=== PATIENT | female | born 1940 | race Caucasian/White ===

== ENCOUNTER 2017-03-01 10:25 | Inpatient (IN) ==
[2017-03-01] MEDS ORDERED: NS 1,000 ML IV SCH (10:48)
[2017-03-01 11:18] LABS: MANUAL DIFF NEEDED? NO
[2017-03-01 11:27] LABS: BASO% 0.2 % (0.0-0.8); EOS# 0.15 X1000 (0.0-0.7); EOS% 1.7 % (0.0-10.0); IMM GRAN# 0.02 X1000 (0.0-0.04); IMM GRAN% 0.2 % (0.0-0.5); LYMPH# 2.88 X1000 (1.2-3.4); LYMPH% 32.7 % (20.5-51.1); MCH 28.5 PG (27-31); MCHC 33.3 g/dL (33-37); MCV 85.5 FL (81-99); MONO# 0.48 X1000 (0.11-0.59); MONO% 5.4 % (1.7-9.3); MPV 11.4 FL (7.4-10.4); NEUT% 59.8 % (42.2-75.2); PLT 271 X1000 (130-400); RBC 4.56 XMIL (4.2-5.4)
[2017-03-01 11:37] LABS: AGAP 16; ALBUMIN 3.8 g/dL (3.5-5.0); ALKALINE PHOSPHATASE 79 U/L (32-104); BUN 7 mg/dL (8-22); CALCIUM 9.2 mg/dL (8.8-10.2); CHLORIDE 104 mmol/L (98-107); COSMO 285; GOT 16 U/L (10-30); GPT 9 U/L (10-36); POTASSIUM 3.2 mmol/L (3.5-5.1); SODIUM 143 mmol/L (136-145); TCO2 23 mmol/L (25-35); TOTAL PROTEIN 6.8 g/dL (6.3-8.3)
[2017-03-01 11:39] LABS: INR 0.98; PROTIME 10.3 Seconds (9.2-11.7)
[2017-03-01 12:50] LABS: URINE CULTURE NEEDED? NO; URINE MICRO REVIEW NEEDED? NO; URINE SOURCE CLEAN CATCH
[2017-03-01 12:53] LABS: BILIRUBIN URINE NEGATIVE (NEGATIVE); BLOOD URINE MODERATE (NEGATIVE); COLOR STRAW; GLUCOSE URINE NEGATIVE (NEGATIVE); LEUKOCYTES URINE NEGATIVE (NEGATIVE); NITRITE URINE NEGATIVE (NEGATIVE); PH URINE 6.5; PROTEIN URINE TRACE mg/dL (NEGATIVE); TURBIDITY URINE CLEAR (CLEAR); UROBILINOGEN URINE NORMAL (NORMAL)
[2017-03-01 12:54] LABS: UR EPITHELIAL CELLS <10 /HPF (<10); URINE BACTERIA NEGATIVE /HPF; URINE RBC <10 /HPF (<10); URINE WBC <10 /HPF (<10)
--- NOTE | 2017-03-01 13:30 | Diag Imaging Result Document ---
PROCEDURE NAME: CT ABD/PELVIS W/ IV CONT ONLY - 03/01/2017 CT ABDOMEN AND PELVIS WITH INTRAVENOUS CONTRAST: FINDINGS: Compared to 10/10/2011. I believe the gallbladder has been removed. There is mild fatty infiltration of the liver. Normal spleen, pancreas, and adrenal glands. There are several small renal cysts. No solid renal mass. No hydronephrosis. No aortic aneurysm. No bowel obstruction. There is an anterior abdominal wall hernia at the umbilicus filled with fat. No bowel loop within this. There is rectal fullness which may simply be debris although there could be an underlying lesion. This near the anus and could possibly be palpated. Normal uterus. No pelvic mass. No enlarged lymph nodes. IMPRESSION: 1. Cholecystectomy. 2. Mild fatty infiltration of the liver. 3. Tiny renal cysts. 4. Debris in the rectum with a questionable underlying lesion along the posterior wall. 5. Fat filled umbilical hernia. A preliminary report was given at 12:58 PM.
[2017-03-01 14:49] LABS: SP GRAVITY URINE 1.005
[2017-03-01] MEDS ORDERED: MORPHINE IV PRN (15:26)
[2017-03-01] MEDS ORDERED: TYLENOL PO PRN (15:26)
--- NOTE | 2017-03-01 16:04 | HISTORY AND PHYSICAL ---
CHIEF COMPLAINT: Passing bright red blood per rectum since yesterday. HISTORY OF PRESENT ILLNESS: She is a 76-year-old pleasant white female, patient of Dr. Esqueda, who came to the ER with 1-day history of hematochezia. It is painless. No abdominal pain. She had one episode last night. She started having 5 or 6 bleeding per rectum. She has a lot of blood in the ER. Upon standing she felt dizzy. Initial workup was negative. She was started on IV fluids and CT scan of the abdomen and pelvis showed some lesion in the rectum. This could be diverticular bleeding or rule out lesions in the colon. Currently she is stable. She has been admitted to the hospital for lower GI bleeding. Serial hematocrits were ordered. Type and cross and screen was done. Dr. Howell has been consulted. PAST MEDICAL HISTORY: Type 2 diabetes, hyperlipidemia, chronic allergies. PAST SURGICAL HISTORY: Cholecystectomy, benign lumps in the breast thirty years ago. MEDICATIONS: Hydroxyzine 25 at bedtime, Glucophage 500 p.o. b.i.d., simvastatin 40 daily. ALLERGIES: Multiple to the medications as well as food products. Reported peanuts, artificial sweeteners, soy, sulfa drugs, watermelon, cephalexin, pollen, influenza vaccine, penicillin, apples. SOCIAL HISTORY: . Retired from secretarial work. No children. No smoking. No alcohol. Quit smoking several years ago. HEALTH MAINTENANCE: Last mammography more than 5 years ago. No colonoscopy before. FAMILY HISTORY: Mom of hip fracture complications at 83. Father had heart disease. from natural causes. LIVING WILL: Full code. REVIEW OF SYSTEMS: HEENT: No headache. No vision problem. No earache. No sore throat. Had a stye in the left lower eyelid. Neck: No goiter. No lymphadenopathy. No bruit. Cardiopulmonary: No chest pain, shortness of breath, PND, orthopnea. Breasts: No lumps in the breast. GI: No nausea, abdominal pain. Had a bleeding per rectum. : No history of hesitancy, frequency. Musculoskeletal: No swelling of feet. No joint pains. No back pain. Neurologic: Dizziness upon standing. No focal symptoms or weakness. No seizures. PHYSICAL EXAMINATION: VITAL SIGNS: Stable. 5 feet 4 inches, 188 pounds. HEENT: Atraumatic, normocephalic. Pupils equal, react to light. Small stye noted in the left lower regulate. Tongue is in midline. Dry mucous membranes. NECK: Supple. No lymphadenopathy. JVD is normal. CHEST: Clear to auscultation. HEART: Sounds are regular. No murmur. BREASTS: Exam deferred. ABDOMEN: Belly is soft. Small umbilical hernia present. Open cholecystectomy scar on the right side noted. No signs of peritonitis. RECTAL: Deferred. EXTREMITIES: No peripheral edema, cyanosis, clubbing. NEUROLOGIC: No obvious focal deficits. INVESTIGATIONS: CBC: White cell count 8.8, hematocrit 39, platelets 271,000. PT/INR is normal. SMA 7 is normal. Sodium 143, potassium 3.2, chloride 104, BUN 7, creatinine 0.7, glucose 137. LFTs were normal. Urinalysis, nitrate positive negative. CT scan of the abdomen and pelvis: Cholecystectomy, fatty liver, debris in the rectum, questionable lesion in the posterior wall, fat containing umbilical hernia. ASSESSMENT AND PLAN: 1. A 76-year-old white female admitted to the hospital with hematochezia, pain less, abnormal CT. Plan is serial hematocrits, type and cross. If the hematocrit below 28 will transfuse. IV crystalloids at [address] Howell consultation for colonoscopy. Hold the aspirin. 2. Type 2 diabetes, on metformin. Clear liquid diet. NPO after midnight. We will follow up on sliding scale with insulin coverage and will hold the home medications for the time being. Discussed with the family. We will follow up. Dr. Esqueda is going to follow up in the morning. cc: Jerry Burgos MD
[2017-03-01] MEDS ORDERED: ZOFRAN IV PRN (16:28)
[2017-03-01 16:48] LABS: MANUAL DIFF NEEDED? NO
[2017-03-01 16:49] LABS: BASO% 0.2 % (0.0-0.8); EOS# 0.05 X1000 (0.0-0.7); EOS% 0.5 % (0.0-10.0); HEMATOCRIT 34.5 % (37.0-47.0); HEMOGLOBIN 11.4 g/dL (12.0-16.0); IMM GRAN# 0.03 X1000 (0.0-0.04); IMM GRAN% 0.3 % (0.0-0.5); LYMPH# 2.47 X1000 (1.2-3.4); LYMPH% 23.8 % (20.5-51.1); MCH 28.4 PG (27-31); MONO# 0.44 X1000 (0.11-0.59); MONO% 4.2 % (1.7-9.3); MPV 11.3 FL (7.4-10.4); PLT 249 X1000 (130-400); RBC 4.01 XMIL (4.2-5.4)
[2017-03-01 17:28] LABS: AGAP 13; BUN 7 mg/dL (8-22); CALCIUM 8.9 mg/dL (8.8-10.2); CHLORIDE 108 mmol/L (98-107); COSMO 287; POTASSIUM 3.5 mmol/L (3.5-5.1); SODIUM 145 mmol/L (136-145); TCO2 24 mmol/L (25-35)
[2017-03-01] MEDS: SODIUM CHLORIDE 0.9% INJ SCH (18:37)
[2017-03-01] MEDS: PROTONIX IV SCH (18:37)
[2017-03-01] MEDS: NS 1,000 ML IV SCH (18:37)
[2017-03-01] MEDS: HUMULIN R SUBQ SCH ×2 (18:38→21:12)
[2017-03-01] MEDS: HYDROXYZINE PO SCH (21:03)
[2017-03-02 05:37] LABS: MANUAL DIFF NEEDED? NO
[2017-03-02] MEDS: NS 1,000 ML IV SCH ×2 (05:38→19:01)
[2017-03-02 05:42] LABS: BASO% 0.2 % (0.0-0.8); EOS# 0.12 X1000 (0.0-0.7); EOS% 1.3 % (0.0-10.0); HEMATOCRIT 30.5 % (37.0-47.0); HEMOGLOBIN 9.9 g/dL (12.0-16.0); IMM GRAN# 0.03 X1000 (0.0-0.04); IMM GRAN% 0.3 % (0.0-0.5); LYMPH# 2.87 X1000 (1.2-3.4); LYMPH% 32.1 % (20.5-51.1); MCH 28.1 PG (27-31); MCHC 32.5 g/dL (33-37); MCV 86.6 FL (81-99); MONO# 0.53 X1000 (0.11-0.59); MONO% 5.9 % (1.7-9.3); MPV 11.3 FL (7.4-10.4); NEUT% 60.2 % (42.2-75.2); PLT 210 X1000 (130-400); RBC 3.52 XMIL (4.2-5.4)
[2017-03-02 06:00] LABS: AGAP 12; BUN 8 mg/dL (8-22); CALCIUM 8.6 mg/dL (8.8-10.2); CHLORIDE 109 mmol/L (98-107); COSMO 286; POTASSIUM 2.8 mmol/L (3.5-5.1); SODIUM 144 mmol/L (136-145); TCO2 23 mmol/L (25-35)
[2017-03-02] MEDS: HUMULIN R SUBQ SCH ×4 (06:07→22:01)
[2017-03-02] MEDS ORDERED: POTASSIUM CHLORIDE 60 MEQ in NS 500 ML IV ONE (06:14)
--- NOTE | 2017-03-02 06:37 | PROGRESS NOTE ---
DATE: 03/02/2017 SUBJECTIVE: Ms. Zamora was admitted with lower GI bleed, fresh bleeding from the rectum. The patient had significant bleeding. She is doing better. No abdominal pain. Denied any constipation alternating with diarrhea. No family history of colorectal cancer. No fever or chills. The patient did have an abnormal CT involving the rectum. The patient had a significant drop in her hemoglobin and hematocrit. The patient is scheduled to have a colonoscopy today. Admission History and Physical noted. PAST MEDICAL HISTORY: Significant for hypertension, IDDM, hyperlipidemia, angioedema. OBJECTIVE: Vital Signs: Her vital signs reviewed. Neck: Supple. No JVD. Lungs: Bilateral good air entry present. Cardiovascular: S1 and S2 heard. Abdomen: Soft, globular. Bowel sounds present. Extremities: No cyanosis or clubbing. No acute DVT. Central Nervous System: Alert, awake, able to move all 4 limbs. LABORATORY DATA: Revealed hemoglobin 9.9, which dropped significantly from her admission hemoglobin of 13; platelet count 210,000. Potassium 2.8. I am going to check her magnesium level. We will supplement potassium. Urinalysis did have moderate blood. CONSIDERATIONS: Rectal bleed. The differential includes diverticulosis; considering her age, underlying malignancy cannot be ruled out. The patient does have an abnormal rectal appearance on CT, mild fatty infiltration of the liver, tiny renal cyst on CT. Her other problems include hypertension, hyperlipidemia, and IDDM. PLAN: Continue current treatment. Potassium supplement. We will resume her home medicines. Overall plan discussed with the patient and she is in agreement. After reviewing colonoscopy results, we will make necessary recommendations. cc: Jordi Esqueda MD
[2017-03-02] MEDS ORDERED: DIPRIVAN 1% ONE (13:01)
[2017-03-02] MEDS ORDERED: ANESTHESIA PB SET 88 IN 5742 ONE (13:07)
[2017-03-02] MEDS ORDERED: EXTENSION SET 32 IN 4522 ONE (13:07)
[2017-03-02] MEDS ORDERED: LR 1,000 ML ONE (13:07)
[2017-03-02] MEDS ORDERED: GOLYTELY PO ONE (14:30)
[2017-03-02] MEDS: SODIUM CHLORIDE 0.9% INJ SCH (16:17)
[2017-03-02] MEDS: PROTONIX IV SCH (16:17)
[2017-03-02] MEDS ORDERED: MAGNESIUM SULFATE 2 GM/S.W.I. 2 GM/50 ML IVPB IV ONE (17:27)
[2017-03-02] MEDS ORDERED: KLOR-CON PO ONE (17:28)
--- NOTE | 2017-03-02 17:55 | PROGRESS NOTE ---
DATE: 03/02/2017 SUBJECTIVE: Ms. Zamora is doing fair. The patient had colonoscopy attempted, but her prep was very poor and they could not do it. They are going to try again tomorrow after proper preparation. The patient had hypokalemia. We are supplementing potassium. Patient will still need monitoring her hemoglobin and hematocrit. OBJECTIVE: Vital signs: Reviewed. Lungs: Clear. Heart: S1 and S2 heard. Abdomen: Soft, globular. Bowel sounds present. PSYCHIATRIC ARNP: Alert, awake, able to move all 4 limbs. CONSIDERATION: Rectal bleed and monitoring her hemoglobin and hematocrit. Hypokalemia, status post potassium supplement. Patient magnesium was low normal. I will go ahead and supplement magnesium. Hypertension and insulin-dependent diabetes mellitus. Lab and medication noted. Overall plan discussed with the patient and she is in agreement. cc: Jordi Esqueda MD
--- NOTE | 2017-03-02 19:47 | CONSULTATION ---
DATE OF CONSULTATION: 03/02/2017 CHIEF COMPLAINT: Rectal lesion. HISTORY: This 76-year-old white female, patient of Dr. Esqueda, presented the emergency department on 03/01 with right red blood per rectum. She had no pain associated with it. She underwent a sigmoidoscopy today revealing a rectal lesion just inside the anal verge that occupies about 25% of the circumference of the wall that appeared to be villous in nature. It was biopsied. The prep was poor so a full colonoscopy could not be completed. PAST MEDICAL HISTORY: Pertinent for type 2 diabetes, hyperlipidemia, multiple drug allergies and environmental allergies. PAST SURGICAL HISTORY: Conventional cholecystectomy and multiple lumps removed from her breasts. HOME MEDICATIONS: Hydroxyzine 25 mg at bedtime, Glucophage 500 mg b.i.d. and simvastatin 40 mg daily. ALLERGIES: Multiple allergies are noted. SOCIAL HISTORY: She is . She is retired. She has no children. She denies smoking or alcohol use. FAMILY HISTORY: Pertinent for heart disease. REVIEW OF SYSTEMS: Really pertinent for her allergic phenomenon and her blood per rectum. Otherwise all other side subsystems are negative. PHYSICAL EXAMINATION: Vital Signs: She is afebrile. Heart rate 62, respiratory rate 16, blood pressure 142/53. General: No cervical adenopathy. She has very poor dentition. Lungs: Bilateral breath sounds. Heart: Regular rate and rhythm. Abdomen: Soft. Umbilical hernia is noted. Vascular: Femoral pulses are present. Extremities: No peripheral edema. Rectal: Rectal examination was not performed. Neurologic: She is awake and alert. DIAGNOSTICS/LABS: White count 8900, hemoglobin 9.9, hematocrit 30, potassium 2.8. ASSESSMENT: Villous lesion of the rectum. PLAN: Full colonoscopy tomorrow and if all those findings are negative then we will probably proceed with a transanal excision of the villous lesion if possible. Thank you for the opportunity of seeing this patient. cc: MD Jordi Turner MD
[2017-03-02] MEDS: ZOCOR PO SCH (22:01)
[2017-03-02] MEDS: HYDROXYZINE PO SCH (22:01)
[2017-03-03] MEDS: NS 1,000 ML IV SCH ×3 (05:23→21:06)
[2017-03-03 05:43] LABS: MANUAL DIFF NEEDED? NO
[2017-03-03 05:45] LABS: BASO% 0.3 % (0.0-0.8); EOS# 0.14 X1000 (0.0-0.7); HEMATOCRIT 27.3 % (37.0-47.0); HEMOGLOBIN 8.7 g/dL (12.0-16.0); IMM GRAN# 0.03 X1000 (0.0-0.04); IMM GRAN% 0.4 % (0.0-0.5); LYMPH# 2.45 X1000 (1.2-3.4); LYMPH% 35.8 % (20.5-51.1); MCH 27.6 PG (27-31); MCHC 31.9 g/dL (33-37); MCV 86.7 FL (81-99); MONO# 0.46 X1000 (0.11-0.59); MONO% 6.7 % (1.7-9.3); MPV 11.4 FL (7.4-10.4); NEUT% 54.8 % (42.2-75.2); PLT 186 X1000 (130-400); RBC 3.15 XMIL (4.2-5.4)
[2017-03-03 06:04] LABS: AGAP 13; BUN 5 mg/dL (8-22); CHLORIDE 107 mmol/L (98-107); COSMO 283; POTASSIUM 3.3 mmol/L (3.5-5.1); SODIUM 143 mmol/L (136-145); TCO2 23 mmol/L (25-35)
[2017-03-03] MEDS: HUMULIN R SUBQ SCH ×4 (06:16→21:07)
[2017-03-03] MEDS ORDERED: POTASSIUM CHLORIDE 60 MEQ in NS 500 ML IV ONE (06:35)
[2017-03-03] MEDS ORDERED: DIPRIVAN 1% ONE (15:19)
[2017-03-03] MEDS ORDERED: ANESTHESIA PB SET 88 IN 5742 ONE (15:37)
[2017-03-03] MEDS ORDERED: LR 1,000 ML ONE (15:37)
--- NOTE | 2017-03-03 15:47 | PROGRESS NOTE ---
DATE: 03/03/2017 SUBJECTIVE: Ms. Zamora is doing better. The patient denied any fever, chills. No rectal bleed. She does feel weak. Her colon prep was poor. Rectal evaluation reviewed which did reveal villous- type lesion in the rectum occupying 25% of the rectum. Surgical evaluation reviewed. The patient is going to have a colonoscopy today for further evaluation. She denied any chest pain or palpitations. OBJECTIVE: Her vital signs noted. Neck supple. No JVD. Lungs: Bilateral good air entry present. CVS: S1 and S2 heard. Abdomen soft, globular. Bowel sounds present. Extremities: No cyanosis, clubbing. No acute DVT. PRECISION FARMING COORDINATOR: Alert, awake, able to move all 4 limbs. LABORATORY DATA: Done today: Potassium is 3.3. BUN 5. Creatinine 0.6. CONSIDERATION: 1. Rectal mass. Endoscope results reviewed. Clinically, it looks like a villous lesion. The patient is going to have colonoscopy today. 2. Spu-hqbheso-zsrmhgglb hypertension. 3. Acute blood-loss anemia. The patient does have angioedema. ALLERGIES: She is allergic to multiple medications and food. PLAN: Overall plan discussed with the patient, and she is in agreement. I am going to supplement potassium. cc: Jordi Esqueda MD
[2017-03-03] MEDS: PROTONIX IV SCH (16:19)
[2017-03-03] MEDS: SODIUM CHLORIDE 0.9% INJ SCH (16:20)
--- NOTE | 2017-03-03 16:24 | OPERATIVE NOTE ---
PROCEDURE DATE: 03/02/2017 REQUESTING PHYSICIAN: Duke Finn MD PROCEDURE: Flexible sigmoidoscopy with biopsy. ATTEMPTED PROCEDURE: Colonoscopy could not be performed because of poor prep. PREOPERATIVE DIAGNOSES: 1. Anemia. 2. Rectal bleeding. 3. Constipation. POSTOPERATIVE DIAGNOSES: 1. Poor prep in the left colon and impaction noted at 40 cm. Scope could not traverse that area. 2. Blood old in the rectum and sigmoid colon, which was lavaged. 3. Large sessile rectal lesion noted just above the anal verge, occupying more than 25% of circumference of the rectum appeared like villous lesion. This was biopsied. ESTIMATED BLOOD LOSS: Minimal. COMPLICATIONS: None. ANESTHESIA: Monitored anesthesia by Anesthesiology. SPECIMENS REMOVED: Rectal villous lesion sent to Surgical Pathology. DESCRIPTION OF PROCEDURE: After informed consent, the patient explained the risks, benefits, indications, alternatives, for the procedure, the patient was prepared for colonoscopy. The patient was turned in the left lateral position and rectal exam was performed, which revealed normal rectal tone. No masses were felt in the posterior aspect of the rectum, which was soft in nature. No blood on the examining finger. The colonoscope was introduced through the anal verge, up to 40 cm from the anal verge. The bowel prep was poor. This was lavaged. The old blood in the rectosigmoid was lavaged. At 40 cm from the anal verge, there was evidence of solid stool occupying the entire circumference, which could not be traversed. The lavage was performed. There was evidence of a large sessile villous appearing rectal lesion just above the anal verge occupying more than 35% circumference. This was biopsied to evaluate for any kind of malignancy. I also called Dr. Marquez intraoperatively and discussed the case with him and showed him the lesion. The air was aspirated as the scope was withdrawn. The patient tolerated the procedure, currently monitored in the OR in stable condition. I discussed the findings with the patient's family and all questions were answered. RECOMMENDATIONS: 1. The patient will need a colonoscopy tomorrow. In this regard, she should be on clear liquid diet today. We will give her a gallon of GoLYTELY today to help clean the stool so that we can visualize the colon completely to evaluate for any kind of synchronous lesions. 2. The patient will need a transanal excision of this large sessile lesion per the surgery, Dr. Marquez will be helping with that. We will call the surgery on-call. 3. We will watch patient's hemoglobin and hematocrit and type and cross, transfuse as needed. 4. Avoid any NSAIDs for now. 5. Check CEA. 6. Further recommendations pending the hospital course. cc: MD Jordi Maradiaga MD Alexis R. Penot, MD Lionel Z. Naylor, MD MTDD
[2017-03-03] MEDS: HYDROXYZINE PO SCH (21:09)
[2017-03-03] MEDS: ZOCOR PO SCH (21:09)
[2017-03-04] MEDS: NS 1,000 ML IV SCH (06:12)
[2017-03-04] MEDS: HUMULIN R SUBQ SCH ×4 (06:12→21:20)
[2017-03-04 06:20] LABS: MANUAL DIFF NEEDED? NO
[2017-03-04 06:33] LABS: BASO% 0.1 % (0.0-0.8); EOS# 0.14 X1000 (0.0-0.7); HEMATOCRIT 26.7 % (37.0-47.0); HEMOGLOBIN 8.6 g/dL (12.0-16.0); IMM GRAN# 0.02 X1000 (0.0-0.04); IMM GRAN% 0.3 % (0.0-0.5); LYMPH# 2.43 X1000 (1.2-3.4); LYMPH% 34.2 % (20.5-51.1); MCH 28.3 PG (27-31); MCHC 32.2 g/dL (33-37); MCV 87.8 FL (81-99); MONO# 0.46 X1000 (0.11-0.59); MONO% 6.5 % (1.7-9.3); MPV 11.1 FL (7.4-10.4); NEUT% 56.9 % (42.2-75.2); PLT 195 X1000 (130-400); RBC 3.04 XMIL (4.2-5.4)
[2017-03-04 06:52] LABS: AGAP 12; ALBUMIN 3.1 g/dL (3.5-5.0); ALKALINE PHOSPHATASE 56 U/L (32-104); BUN 3 mg/dL (8-22); CALCIUM 8.2 mg/dL (8.8-10.2); CHLORIDE 106 mmol/L (98-107); COSMO 279; GOT 13 U/L (10-30); GPT 7 U/L (10-36); POTASSIUM 3.7 mmol/L (3.5-5.1); SODIUM 142 mmol/L (136-145); TCO2 24 mmol/L (25-35); TOTAL BILIRUBIN 0.35 mg/dL (0.20-1.00); TOTAL PROTEIN 5.3 g/dL (6.3-8.3)
--- NOTE | 2017-03-04 07:11 | PROGRESS NOTE ---
DATE: 03/04/2017 SUBJECTIVE: Ms. Zamora is doing better. The patient underwent colonoscopy yesterday and found to have villous adenoma of the rectum. Otherwise it was benign. Patient is waiting for surgical evaluation. Her CEA level was elevated. No fever, chills. No nausea or vomiting. The patient denied any active bleeding. No chest pain or palpitation. OBJECTIVE: Vital Signs: Reviewed. Neck: Supple. No JVD. Lungs: Bilateral good air entry present. Cardiovascular: S1 and S2 heard. Abdomen: Soft, globular. Bowel sounds present. CRM ANALYST: Alert, awake. Able to move all 4 limbs. LABORATORIES: Patient labs and medication noted. ASSESSMENT: 1. Consideration of villous adenoma of the rectum. 2. Hypertension. 3. NIDDM. 4. Hyperlipidemia. PLAN: We are waiting for surgical evaluation and final decision about surgery. The patient is eager to go home. Meanwhile, continue current treatment. I will recheck her electrolytes. Continue rest of the treatment and close observation. PLAN: Overall plan discussed with the patient. She is in agreement. cc: Jordi Esqueda MD
--- NOTE | 2017-03-04 12:32 | PROGRESS NOTE ---
DATE: 03/04/2017 SUBJECTIVE: No bleeding, no pain. She is hungry, and she is wondering about her surgery. OBJECTIVE: Vital Signs: No fevers. Pulse is 65, blood pressure 125/67, and oxygen saturation is 100% on room air. General: She is alert, in no acute distress. Abdomen: Soft, nontender. Integumentary: Warm and dry. There is no jaundice. LABORATORY DATA: White count 7 and hematocrit 26, this has been stable. Creatinine 0.6, glucose is 92. CEA is mildly elevated at 12.5. ASSESSMENT AND PLAN: A 76-year-old female with lower gastrointestinal bleed felt to be related to a very distal rectal polyp that would be a minimal transanal excision. She has been biopsied multiple times. Pathology is pending. I spoke with Dr. Lake about this. He is going to try to give me an answer today. I discussed with the patient transanal excision if this is a tubulovillous lesion; however, we also discussed the possibility of needing staging and neoadjuvant therapy if this shows invasive cancer. She has had a completion colonoscopy that showed no other lesions, and we will plan, pending the results of her pathology today, to go to the operating room tomorrow for a transanal excision of this rectal mass. We discussed the risks of bleeding, infection, and incontinence or damage to the sphincter muscle or even stricturing depending on what is involved, and she understands these risks and consents to the procedure. We will let her eat a full liquid diet today, n.p.o. at midnight, and plan for surgery tomorrow. cc: MD Jordi Davies MD
[2017-03-04] MEDS: SODIUM CHLORIDE 0.9% INJ SCH (16:47)
[2017-03-04] MEDS: PROTONIX IV SCH (16:47)
--- NOTE | 2017-03-04 19:29 | PROGRESS NOTE ---
DATE: 03/04/2017 SUBJECTIVE: Patient currently resting in bed. She denies any nausea vomiting, vomiting blood, denies any rectal bleeding. She denies any fevers, rigors, chills. She is currently getting ready for a transanal resection of rectal lesion tomorrow morning by Dr. Ney Farah. The biopsies were reviewed which shows villoglandular adenoma. No malignancy was noted. Her CEA is slightly high at 12. PHYSICAL EXAMINATION: Vital Signs: Temperature 97.6, pulse rate 65, respiratory rate 20, blood pressure 127/67, saturating 100% on room air. General Appearance: Moderately nourished, lying in bed, in no acute distress. HEENT: Mild pallor. No icterus. Neck: Supple. Abdomen: Morbidly obese. Soft, nontender, nondistended. Bowel sounds. No rebound. Extremities : No cyanosis, clubbing, edema. Neurologic: She is alert, awake, oriented. LABORATORY DATA: Hemoglobin and hematocrit is 8.6 and 26.7, white count 7.1, platelet count of 195,000. MCV of 87.8, INR of 1.98. Sodium 140, potassium 3.7, chloride 106, bicarbonate 27, anion gap of 12, BUN of 3, creatinine 0.6. Glucose of 92, calcium is 8.2, total bilirubin is 0.35, AST 13, ALT 7, alkaline phosphatase is 56, total protein 5.3, albumin 3.1, CEA was 12.5. IMPRESSION AND PLAN: 1. Villoglandular adenoma of the rectum getting ready for transanal resection with Dr. Ney Farah tomorrow morning. 2. Hypertension and type 2 diabetes, hyperlipidemia, obesity, per the primary team. 3. Gastrointestinal prophylaxis with proton pump inhibitor once daily. 4. Constipation. We will continue patient on bowel regimen. 5. Diverticulosis. Avoid corn, nuts, and seeds in diet. Increase fiber to 25- 30 grams in 24 hours. 6. The patient will likely need repeat colonoscopy in 1 year. The above plan was discussed with the patient and family. cc: MD Dieudonne Davies MD Bharat K. Vakharia, MD MTDD
[2017-03-04] MEDS: HYDROXYZINE PO SCH (21:51)
[2017-03-04] MEDS: ZOCOR PO SCH (21:51)
[2017-03-05] MEDS: HUMULIN R SUBQ SCH ×4 (06:27→21:57)
--- NOTE | 2017-03-05 07:05 | PROGRESS NOTE ---
DATE: 03/05/2017 SUBJECTIVE: Ms. Zamora is doing better. No bleeding per rectum. No chest pain or palpitations. The patient does feel weak. Her biopsy results reviewed. The patient is going to have transanal excision of her villous adenoma. OBJECTIVE: Vital signs noted. Neck supple. No JVD. Lungs clear. Heart regular. Abdomen is soft, globular. Bowel sounds present. Extremities: No cyanosis, clubbing. No acute DVT. SENIOR INFRASTRUCTURE ENGINEER: Alert, awake, able to move all 4 limbs. CONSIDERATION: 1. Lower gastrointestinal bleed. 2. Acute blood loss anemia. 3. Villous adenoma in the rectum. 4. Kuc-epylztm-ceradrloh diabetes. 5. Hypertension. I am going to check appropriate blood work today. Continue rest of the treatment. Close observation. Overall plan discussed with the patient, and she is in agreement. cc: Jordi Esqueda MD
--- NOTE | 2017-03-05 08:39 | PROGRESS NOTE ---
DATE: 03/05/2017 SUBJECTIVE: She is hungry. She feels well. She is ready for surgery. No more bleeding. OBJECTIVE: No fevers. Temperature 98.1 degrees, pulse 82, blood pressure 111/58, and oxygen saturation 98% on room air.General: She is alert and oriented. Abdomen: Soft, nontender. Cardiovascular: Normal rate and regular rhythm. LABORATORY: Reviewed her labs and nothing new today. White count and hematocrit were stable yesterday. ASSESSMENT/PLAN: A 76-year-old female with a distal rectal tubulovillous adenoma that was friable and caused some bleeding. We will plan for transanal excision of this lesion today. Dr. Pineda did not see any evidence of invasive cancer on her biopsies taken at time of her colonoscopy. We have had long discussion of risk of bleeding, infection, damage to the sphincter muscles causing incontinence for stricture, and she understands these and willing to proceed. She also understands the possibility of finding invasive cancer in the final specimen that this would require further treatment and possibly more surgery. cc: MD Jordi Davies MD
[2017-03-05] MEDS ORDERED: CLINDAMYCIN 900 MG/NS 900 MG/50 ML IVPB ONE (11:40)
[2017-03-05] MEDS ORDERED: NUPERCAINAL ONE (12:53)
[2017-03-05] MEDS ORDERED: TORADOL ONE (13:24)
[2017-03-05] MEDS ORDERED: AMIDATE ONE (13:24)
[2017-03-05] MEDS ORDERED: XYLOCAINE-MPF 2% ONE (13:24)
[2017-03-05] MEDS ORDERED: ROBINUL ONE (13:24)
[2017-03-05] MEDS ORDERED: ANESTHESIA PB SET 88 IN 5742 ONE (13:24)
[2017-03-05] MEDS ORDERED: LR 2,000 ML ONE (13:24)
[2017-03-05] MEDS: MORPHINE ONE ×2 (13:54→13:58)
[2017-03-05] MEDS ORDERED: BENADRYL ONE (15:04)
--- NOTE | 2017-03-05 15:06 | OPERATIVE NOTE ---
PROCEDURE DATE: 03/05/2017 PREOPERATIVE DIAGNOSIS: Distal rectal mass. POSTOPERATIVE DIAGNOSIS: Distal rectal mass. PROCEDURES PERFORMED: 1. Examination under anesthesia. 2. Transanal excision of distal rectal mass. 3. Rigid proctoscopy. ESTIMATED BLOOD LOSS: 10 mL. SPECIMENS: 1. Superficial distal rectal mass. 2. Deep sections of superficial mass. ESTIMATED BLOOD LOSS: 10 mL. INDICATIONS: This is a 76-year-old female who presented with GI bleed. She was found to have, at the time of colonoscopy, a very distal polyp. Biopsies were taken at the time of colonoscopy that showed a tubulovillous adenoma with no evidence of invasive cancer. She had a complete colonoscopy that showed no other lesions. Transanal excision is indicated for treatment and diagnosis. OPERATIVE FINDINGS: There was a flat-based polyp encompassing approximately 20% to 25% of the posterior right lateral wall of the distal rectum. The most distal aspect of the lesion was measured at 4 cm from the dentate line, and the proximal portion was 8 cm. It was somewhat mobile, but very firm and hard at the base, and overlay the level of the coccyx. OPERATIVE NOTE: Risks, benefits, and alternatives discussed with the patient and she consented to the procedure. She was seen in the preoperative area and surgery to be performed was confirmed. She was taken to the operating, placed in supine position, and general anesthesia was induced without complication. All bony prominence were padded. She was placed in high lithotomy position. After a time-out was performed, perineum was prepped with Betadine solution and draped in the usual fashion. After the time-out was performed, we performed a digital rectal examination and noted the distal aspect of the lesion. We then placed an anal speculum and inspected all quadrants. We could easily identify the mass. The superficial aspect was very friable and frondlike; however, there was a hard, more firm base to this. The rectal mucosa was otherwise quite redundant and we used a Ray-Grace to help provide exposure proximally and anteriorly. We then took multiple excisional biopsies of this mass. The superficial aspect was very friable and crumbled, but was collected. Then, using electrocautery, we excised the base of this. It was a very deep lesion, felt to be full-thickness in most involved aspects and, as such, we did not perform a total full-thickness excision, given that she had not had MRI or US staging. We obtained hemostasis and held pressure, and hemostasis was noted. We then performed rigid proctoscopy. We were able to visualize the 2nd rectal valve, withdrew the scope and identified the proximal aspect of the lesion at 8 cm. The distal aspect as confirmed on digital rectal examination and speculum examination was at approximately 4 cm from the dentate line. We did a perianal block and placed a hemorrhoidal sponge with topical viscous anesthetic on there, and gauze and mesh panties were placed. She tolerated the procedure well, with no identified complication. At the conclusion, all counts were correct. I spoke with the . Plan will be to await final pathology, which I worry will show invasive cancer. At that point, she will need local staging with MRI or US, and plans for either repeat full-thickness transanal excision if it is a T1 lesion, although this would be quite difficult, given the proximal extension, or neoadjuvant therapy and formal excision with most likely abdominoperineal resection. We did discuss this with the . cc: MD Jordi Davies MD
[2017-03-05] MEDS ORDERED: EPINEPHRINE SUBQ ONE (15:22)
[2017-03-05] MEDS ORDERED: SOLU-MEDROL IV ONE (15:22)
[2017-03-05] MEDS ORDERED: SOLU-MEDROL ONE (15:23)
[2017-03-05] MEDS ORDERED: EPIPEN SUBQ ONE (15:30)
[2017-03-05] MEDS: SODIUM CHLORIDE 0.9% INJ SCH (17:25)
[2017-03-05] MEDS: PROTONIX IV SCH (17:25)
[2017-03-05 19:24] LABS: BASO% 0.1 % (0.0-0.8); HEMATOCRIT 31.6 % (37.0-47.0); HEMOGLOBIN 10.3 g/dL (12.0-16.0); IMM GRAN# 0.03 X1000 (0.0-0.04); IMM GRAN% 0.2 % (0.0-0.5); LYMPH# 0.89 X1000 (1.2-3.4); LYMPH% 7.3 % (20.5-51.1); MANUAL DIFF NEEDED? YES; MCH 28.6 PG (27-31); MCHC 32.6 g/dL (33-37); MCV 87.8 FL (81-99); MONO% 1.6 % (1.7-9.3); MPV 11.3 FL (7.4-10.4); NEUT% 90.8 % (42.2-75.2); PLT 240 X1000 (130-400)
[2017-03-05 19:59] LABS: AGAP 20; ALBUMIN 3.7 g/dL (3.5-5.0); ALKALINE PHOSPHATASE 89 U/L (32-104); BUN 5 mg/dL (8-22); CALCIUM 8.7 mg/dL (8.8-10.2); CHLORIDE 102 mmol/L (98-107); COSMO 284; GOT 33 U/L (10-30); GPT 14 U/L (10-36); POTASSIUM 2.9 mmol/L (3.5-5.1); SODIUM 143 mmol/L (136-145); TCO2 21 mmol/L (25-35); TOTAL PROTEIN 6.3 g/dL (6.3-8.3)
[2017-03-05 20:10] LABS: BANDS 1 % (0-1); LYMPHS 3 % (21-51)
[2017-03-05] MEDS: ZOCOR PO SCH (21:56)
[2017-03-05] MEDS: HYDROXYZINE PO SCH (21:56)
[2017-03-05] MEDS: PERIDEX MT SCH (21:56)
[2017-03-06 05:50] LABS: HEMOGLOBIN 10.1 g/dL (12.0-16.0); IMM GRAN# 0.02 X1000 (0.0-0.04); IMM GRAN% 0.3 % (0.0-0.5); LYMPH# 0.83 X1000 (1.2-3.4); LYMPH% 11.1 % (20.5-51.1); MANUAL DIFF NEEDED? YES; MCHC 32.6 g/dL (33-37); MCV 85.9 FL (81-99); MONO# 0.07 X1000 (0.11-0.59); MONO% 0.9 % (1.7-9.3); MPV 11.1 FL (7.4-10.4); NEUT% 87.7 % (42.2-75.2); PLT 304 X1000 (130-400); RBC 3.61 XMIL (4.2-5.4)
[2017-03-06 06:07] LABS: AGAP 14; ALBUMIN 3.6 g/dL (3.5-5.0); ALKALINE PHOSPHATASE 86 U/L (32-104); BUN 9 mg/dL (8-22); CALCIUM 9.4 mg/dL (8.8-10.2); CHLORIDE 104 mmol/L (98-107); COSMO 282; GOT 20 U/L (10-30); GPT 12 U/L (10-36); POTASSIUM 4.1 mmol/L (3.5-5.1); SODIUM 141 mmol/L (136-145); TCO2 23 mmol/L (25-35); TOTAL BILIRUBIN 0.36 mg/dL (0.20-1.00); TOTAL PROTEIN 6.6 g/dL (6.3-8.3)
[2017-03-06 06:32] LABS: BANDS 6 % (0-1); LYMPHS 10 % (21-51)
[2017-03-06] MEDS: HUMULIN R SUBQ SCH (06:32)
--- NOTE | 2017-03-06 07:38 | DISCHARGE SUMMARY ---
ADMISSION DATE: 03/01/2017 DISCHARGE DATE: 03/06/2017 FINAL DISCHARGE DIAGNOSES: 1. 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 2. Acute blood loss anemia. 3. Hypertension. 4. Noninsulin dependent diabetes mellitus. 5. Hyperlipidemia. 6. Vitamin B12 deficiency. 7. Angioedema. HOSPITAL COURSE: Ms. Zamora is a 76-year-old white female patient admitted with significant low rectal bleed. The patient was feeling weak and dizzy. Evaluated in the ER, admitted for further care. The patient's initial hemoglobin was 13. It dropped down to 8.6. The patient did have significant bleeding. The patient underwent a colonoscopy. Initial preparation was not good. First colonoscopy did reveal a rectal mass which was villous adenoma. The patient had proper preparation and underwent colonoscopy next day. The rest of the colon was benign. Patient had another colonoscopy and it did show villous adenoma of the rectum. Biopsy result reviewed and it was villoglandular adenoma with mild chronic inflammation and focal erosion. The patient underwent a transanal resection. Operative note reviewed. We are waiting for biopsy result. After reviewing biopsy, we will decide further recommendation. Looking at the operative note, the patient will need further workup. Overall patient is doing better. Very eager to go home. Yesterday patient had episode of angioedema. We treated her with steroid Benadryl and epinephrine. Patient responded very well. Her hemoglobin and hematocrit remained stable. OBJECTIVE: Vital Signs: Vital signs stable. Lungs: Clear. Heart: Regular. Abdomen: Soft, globular. Bowel sounds present. 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 Able to move all 4 limbs. LAB DATA: Hemoglobin today 10.1, hematocrit 31, WBC count 7.49, platelet 304,000. Electrolytes done today fairly within acceptable range. Her CEA level was 12.5. The patient did have episode of hypokalemia which was treated appropriately. ASSESSMENT AND PLAN: I am planning to discharge patient home. The surgeon is in agreement. Advised patient to watch for bleeding. Continue home medicine. Follow up with me next week. I will consider blood work. I gave her Icar C, and also MiraLAX for constipation. Follow up with surgeon as scheduled. In case of more distress, call us back or go to the emergency room. Discharge plan discussed with the patient. She is in agreement. cc: Jordi Esqueda MD
[2017-03-06 07:40] VITALS: BP 122/56
[2017-03-06] MEDS: PERIDEX MT SCH (08:49)
--- NOTE | 2017-03-06 13:49 | PROGRESS NOTE ---
DATE: 03/06/2017 SUBJECTIVE: No bleeding overnight. No pain. She is tolerating her diet and wants to go home. OBJECTIVE: No fevers. No tachycardia.Abdomen: Soft, nontender. Integument: Warm, dry. ASSESSMENT AND PLAN: This is a 76-year-old female found with a lower GI bleed to have a large polyp in the distal rectum. She went for a transanal excision of this. [place] to be related to a cancer. We sent multiple deep biopsies of this. Will await final pathology to decide further management. She has an appointment with me next week to discuss her pathology and need for further staging or further formal excision. Will see her at that point. cc: MD Jordi Davies MD
--- NOTE | 2017-03-12 14:10 | OPERATIVE NOTE ---
PROCEDURE DATE: 03/03/2017 PROCEDURES: Colonoscopy and polypectomy with a snare. PREOPERATIVE DIAGNOSIS: Rectal bleeding. POSTOP DIAGNOSIS: Large polypoid mass in the rectum, partially resected with a snare. DESCRIPTION OF PROCEDURE: After informed consent and adequate intravenous sedation by anesthesia, the rectal exam was performed. Patient has a soft mass in the rectum. At this point, scope was introduced and advanced up to the mid cecum. The entire colon is unremarkable other than in the rectum there is a large, flat, villous adenoma appearing lesion. I am afraid this has malignancy. At this point, a snare cautery was applied and a large particle biopsy was done and the polyp was "only partially removed." We will review the biopsies. The patient needs either transanal resection if the biopsies are benign or abdominoperineal resection if the biopsies are showing malignancy. cc: MD Jordi Farris MD
--- NOTE | 2017-03-15 18:11 | PROGRESS NOTE ---
DATE: 03/03/2017 SUBJECTIVE: Patient is feeling fine. Denies any fever. No rectal bleeding. She had a flexible sigmoidoscopy where the prep was good however she had what appears to be a villous adenoma in the rectum which was resected and biopsy is admitted. The patient will be prepped again for a colonoscopy to examine the rest of the colon. OBJECTIVE: Vital signs: Stable. Neck: Supple. No JVD. Heart: Normal 1st and 2nd heart sounds. Lungs: Clear. Abdomen: Soft. Nontender. Bowel sounds present and normal. DATA: BUN and creatinine normal. Hematocrit stable. IMPRESSION: 1. Rectal bleeding, resolved. 2. Rectal mass, villous adenoma in the rectum biopsied. 3. Type 2 diabetes. 4. Blood loss anemia. RECOMMENDATION: Will continue clear liquids and prep her today and will probably schedule her for colonoscopy to examine the rest of the colon. Meanwhile this polyp may need transanal resection. Will discuss with surgeons as well. cc: MD Jordi Farris MD
--- NOTE | 2017-03-15 20:48 | CONSULTATION ---
DATE OF CONSULTATION: 03/01/2017 REASON FOR CONSULTATION: GI bleed. HISTORY OF PRESENT ILLNESS: 76-year-old lady presents ER with 1-day history of hematochezia which is painless without any abdominal pain. She had an episode the night before and since then she had about 6. She was feeling dizzy, admitted for further evaluation. She had a CT scan of the abdomen and pelvis showed some lesion in the rectum that needs to be further evaluated and I was called in. PAST MEDICAL HISTORY: Type 2 diabetes, hyperlipidemia, allergies. PAST SURGICAL HISTORY: Cholecystectomy and lumpectomy. MEDICATION: Hydroxyzine 25 at bedtime, Glucophage 500 b.i.d., simvastatin 40 daily. ALLERGIES: She is allergic to multiple medications, sulfa, cephalosporin, penicillin, influenza vaccine and many nut allergies. SOCIAL: She is . Retired from secretarial work. No children. No smoking, alcohol or drug use. HEALTH MAINTENANCE: Last mammography about 5 years ago. No colonoscopy over. FAMILY HISTORY: Mother of hip fracture complications. Father had heart disease. REVIEW OF SYSTEMS: A 14-point review is essentially negative other than HPI. PHYSICAL EXAMINATION: Vital Signs: Blood pressure 120/70, pulse of 90, respirations 16, afebrile. HEENT: Conjunctival pallor present. Neck: Supple. Trachea midline. Heart: Normal first and second heart sounds. Lungs: Clear. Abdomen: No tenderness, no rebound or rigidity. Bowel sounds present and normal. Neurological: No focal deficit. Extremities: No pedal edema, cyanosis or clubbing. LABORATORY DATA: Hematocrit is 39, white cell count is normal. PT, PTT normal. Glucose 137, LFTs are normal. CT scan findings are above with possible lesion in the rectum and some fat containing umbilical hernia. IMPRESSION: 1. Gastrointestinal bleeding. 2. Anemia secondary to gastrointestinal bleeding. 3. Abnormal CAT scan showing rectal lesion. 4. Diabetes mellitus. PLAN: Agree with IV fluids. Her hematocrit is stable but it will probably come down after IV fluids. Will proceed with endoscopy in the morning. cc: MD Jordi Farris MD
--- NOTE | 2017-04-02 14:09 | PROVIDER DOCUMENTATION ---
This chart was entered by Sienna Ashton Scribe, acting as scribe for Martinez Jc MD. HPI-Abdominal Pain/GI Problem - General Chief Complaint: Rectal Bleeding Stated Complaint: RECTAL BLEEDING Time Seen by Provider: 03/01/17 10:39 Source: patient Allergies/Adverse Reactions: Patient Allergies Allergy/AdvReac Type Severity Reaction Status Date / Time aspartame Allergy Severe breathing Verified 04/08/17 09:35 difficulty grape Allergy Severe tongue Verified 04/08/17 09:35 swelling peanut Allergy Severe mouth Verified 04/08/17 09:35 swelling saccharin Allergy Severe tongue Verified 04/08/17 09:35 swelling soy Allergy Severe tongue Verified 04/08/17 09:35 swelling Sulfa (Sulfonamide Allergy Severe ANAPHYLAXIS Verified 04/08/17 09:35 Antibiotics) watermelon Allergy Severe tongue Verified 04/08/17 09:35 swelling cephalexin monohydrate * Allergy Intermediate HIVES Verified 04/08/17 09:35 [From Keflex] grass pollen-perennial rye, Allergy Intermediate SHORTNESS Verified 04/08/17 09: 35 standar OF BREATH influenza virus vaccine, Allergy Intermediate HIVES Verified 04/08/17 09:35 specific [Influenza Virus Vacc,Specific] Penicillins Allergy Intermediate RASH Verified 04/08/17 09:35 azithromycin Allergy ANAPHYLAXIS Verified 04/08/17 09:35 morphine AdvReac Severe SWELLING Verified 04/08/17 09:35 apples Allergy Severe tongue Uncoded 04/08/17 09:35 swelling soy sauce Allergy Severe tongue Uncoded 04/08/17 09:35 swelling Home Medications: Home Medication List Medication Instructions Recorded Confirmed Last Taken Type Hydroxyzine 25 mg PO QHS 08/02/13 04/08/17 04/08/17 20:30 History Metformin [Glucophage] 500 mg PO BID CC 08/02/13 04/08/17 04/08/17 20:30 History SIMVAstatin [Zocor] 40 mg PO HS 08/02/13 04/08/17 04/08/17 20:30 History - History of Present Illness-ABD Nature of Presenting Problems: Pt is a 76 yof who came to the ED with a cc of bleeding when she has a bowel movement. Pt reports last night when she had a bowel movement she noticed a small amount of blood in the toilet. The pt went to sleep then woke up this morning around 9 and had another bowel movement and noticed the entire toilet filled with blood. Pt denies any pain, fever, diarrhea, N/V, chest pain. Pain Radiation: reports: no radiation Quality of Pain: reports: none Onset/Duration: reports: last night Timing: reports: still present Activities at Onset: reports: none Modifying Factors: improves with: nothing Associated Symptoms: reports: loss of appetite Last BM: this morning Dark Stools Present?: reports: bright red blood Emesis Description: reports: none Bruising or Bleeding Gums?: No Similar Symptoms Previously?: No Recently seen or treated by another doctor?: No Review of Systems - Adult - REVIEW OF SYSTEMS - ADULT Constitutional: denies: chills, fever Eyes: reports: no symptoms reported Ears, Nose, Mouth & Throat: reports: no symptoms reported Cardiovascular: reports: no symptoms reported Respiratory: reports: no symptoms reported Gastrointestinal: reports: poor appetite, rectal bleeding. denies: abdominal pain, diarrhea, nausea, vomiting Genitourinary: denies: hematuria, urinary retention Musculoskeletal: reports: no symptoms reported Integumentary: reports: no symptoms reported Neurological: reports: no symptoms reported Psychiatric: reports: no symptoms reported Endocrine: reports: no symptoms reported Hematologic/Lymphatic: reports: no symptoms reported Allergic/Immunologic: reports: no symptoms reported All Other Systems: Reviewed and Negative Past History - Adult - PAST MEDICAL HISTORY-ADULT Review of Records: reports: Old Records Reviewed, Nursing Assessment Review, Medications Reviewed Major Childhood Illnesses: reports: denies history Cardiovascular: reports: hyperlipidemia Respiratory: reports: denies history Gastrointestinal: reports: denies history Obstetrical/Gynecological: reports: denies history Genitourinary: reports: denies history Musculoskeletal: reports: denies history Neurological: reports: denies history Endocrine/Immune: reports: Diabetes Other Conditions: reports: other (allergies) - PRIOR SURGERIES/PROCEDURES Surgical/Procedure History: reports: cholecystectomy, other (lumpectomy right breast) - IMMUNIZATION STATUS Childhood Immunizations: See Nurse Assessment Flu Vaccine: See Nurse Assessment - FAMILY HISTORY Family History: reviewed, not pertinent Physical Exam-General - PHYSICAL EXAM-ADULT Initial Vital Signs Reviewed: Yes - CONSTITUTIONAL General Appearance: appears well, alert, no apparent distress - EYES Eyes: PERRL/EOMI, pink conjunctivae - HEAD, EARS, NOSE, MOUTH & THROAT HENMT: normocephalic/atraumatic, moist mucous membranes, normal ENT inspection, TMs normal, pharynx normal - NECK Neck: non-tender, full range of motion, supple, normal inspection - RESPIRATORY Respiratory: chest non-tender, lungs clear, normal breath sounds, no pleuratic chest pain, no respiratory distress, no accessory muscle use - CARDIOVASCULAR Cardiovascular: normal peripheral pulses, regular rate, rhythm, no edema, no gallop, no JVD, no murmur - GASTROINTESTINAL (ABDOMEN) Abdominal Exam: normal bowel sounds, non tender, soft, no organomegaly, no pulsatile mass - LYMPHATIC Lymphatic: no adenopathy - MUSCULOSKELETAL Back Exam: normal inspection, no CVA tenderness, no vertebral tenderness Extremity: normal range of motion, non-tender, normal gait, normal inspection, no pedal edema, no calf tenderness, normal capillary refill, pelvis stable - SKIN Integumentary: normal color, normal turgor, warm/dry - NEUROLOGIC Neurologic: support specialist II-XII nml as tested, no motor/sensory deficits - PSYCHIATRIC Psych/Mental Status: normal mood/affect, normal thought content, normal thought process, oriented x 3 Progress - PLAN OF CARE/RESULTS Progress/Plan/Lab Results: Vital Signs - 8 hr 03/01/17 10:27 Temperature 98.2 F Pulse Rate 91 H Respiratory Rate 18 Blood Pressure 160/86 O2 Sat by Pulse Oximetry 99 Result Diagrams: 03/06/17 05:30 03/06/17 05:30 - CT/MRI 1 CT Study: Abdomen, Pelvis Impression: See EMR Report MRI Study: Abdomen (1. Cholecystectomy 2. mild fatty infiltration of the liver 3. tiny renal cysts 4. debris i the rectum with questionable underlying lesion along the posterior wall 5. fat filled umbilical hernia) Departure - Departure Date of Disposition Decision: 03/01/17 Time of Disposition Decision: 16:55 DIAGNOSIS: Rectal bleeding Disposition: ADMITTED INPATIENT 09 Certified Medical Emergency: Emergent Condition: Stable - Critical Care Note This patient required my direct & personal management of CC.: Yes Total Time (mins): 30 Critical Care Statement: This patient required my direct personal management to treat or rule out processes, the absence of which, could potentiallly result in sudden, clinically significant life or limb threatening deterioration. This chart was documented by the indicated scribe, (Sienna Ashton Scribe) and accurately reflects the services I performed and decisions made by me, Martinez Jc MD, as attested by the provider's signature.
== END 2017-03-06 10:02 | disposition home or self-care (01) ==
LOC: ED 10:25 → 4N 16:09
PROVIDERS: ADMIT Internal Medicine; ATTEND Internal Medicine

== ENCOUNTER 2017-08-06 01:37 | Inpatient (IN) ==
[2017-08-06] MEDS ORDERED: ENTEREG ONE (08:53)
[2017-08-06] MEDS ORDERED: LR 1,000 ML ONE ×2 (08:53→15:44)
[2017-08-06] MEDS ORDERED: NAROPIN 0.5% ONE (09:45)
[2017-08-06] MEDS ORDERED: EXPAREL 1.3% ONE (09:46)
[2017-08-06] MEDS ORDERED: QUELICIN (DOSE) ONE (09:49)
[2017-08-06] MEDS ORDERED: STERILE WATER INJ. ONE (09:49)
[2017-08-06] MEDS ORDERED: NORCURON ONE (09:49)
[2017-08-06] MEDS ORDERED: ROBINUL ONE ×2 (09:49→14:14)
[2017-08-06] MEDS ORDERED: XYLOCAINE-MPF 2% ONE (09:49)
[2017-08-06] MEDS ORDERED: DIPRIVAN 1% ONE (09:50)
[2017-08-06] MEDS ORDERED: PEPCID ONE (09:53)
[2017-08-06] MEDS ORDERED: REGLAN ONE (09:53)
[2017-08-06] MEDS ORDERED: FLAGYL 500 MG/NS 500 MG/100 ML IVPB IV ONE (10:00)
[2017-08-06] MEDS ORDERED: EPHEDRINE ONE (11:28)
[2017-08-06] MEDS ORDERED: AZACTAM 1 GM in NS 50 ML IV ONE (12:00)
[2017-08-06] MEDS ORDERED: SODIUM CHLORIDE 0.9% 10 ML ONE (12:02)
[2017-08-06] MEDS ORDERED: NEO-SYNEPHRINE ONE (12:02)
[2017-08-06] MEDS ORDERED: FENTANYL ONE (12:06)
[2017-08-06 12:50] LABS: URINE MICRO REVIEW NEEDED? NO; URINE SOURCE CATH
[2017-08-06 12:54] LABS: BILIRUBIN URINE NEGATIVE (NEGATIVE); BLOOD URINE TRACE (NEGATIVE); COLOR YELLOW; GLUCOSE URINE NEGATIVE (NEGATIVE); LEUKOCYTES URINE TRACE (NEGATIVE); NITRITE URINE NEGATIVE (NEGATIVE); PROTEIN URINE 30 mg/dL (NEGATIVE); SP GRAVITY URINE 1.018; TURBIDITY URINE HAZY (CLEAR); UR EPITHELIAL CELLS <10 /HPF (<10); URINE BACTERIA NEGATIVE /HPF; URINE RBC <10 /HPF (<10); URINE WBC <10 /HPF (<10); UROBILINOGEN URINE NORMAL (NORMAL)
[2017-08-06] MEDS ORDERED: OFIRMEV 1000 MG/ISOTONIC SOLN 1,000 MG/100 ML BOTTLE ONE (13:01)
[2017-08-06] MEDS ORDERED: ZOFRAN ONE (14:14)
[2017-08-06] MEDS ORDERED: NEOSTIGMINE ONE (14:15)
[2017-08-06] MEDS ORDERED: ZOFRAN IV PRN (16:01)
[2017-08-06] MEDS: OFIRMEV 1000 MG/ISOTONIC SOLN 1,000 MG/100 ML BOTTLE IV SCH ×2 (17:26→23:38)
[2017-08-06] MEDS: DILAUDID IV PRN ×2 (17:52→20:57)
[2017-08-06] MEDS: ZOCOR PO SCH (20:57)
[2017-08-06] MEDS: PERIDEX MT SCH (20:57)
[2017-08-06] MEDS: LR 1,000 ML IV SCH (20:58)
[2017-08-07] MEDS: DILAUDID IV PRN ×4 (03:55→20:51)
[2017-08-07] MEDS: OFIRMEV 1000 MG/ISOTONIC SOLN 1,000 MG/100 ML BOTTLE IV SCH ×4 (03:56→21:12)
[2017-08-07] MEDS: LR 1,000 ML IV SCH ×2 (04:35→14:10)
[2017-08-07 05:34] LABS: EOS# 0.01 X1000 (0.0-0.7); EOS% 0.1 % (0.0-10.0); HEMATOCRIT 32.1 % (37.0-47.0); HEMOGLOBIN 10.4 g/dL (12.0-16.0); IMM GRAN# 0.03 X1000 (0.0-0.04); IMM GRAN% 0.3 % (0.0-0.5); LYMPH# 0.68 X1000 (1.2-3.4); LYMPH% 5.8 % (20.5-51.1); MANUAL DIFF NEEDED? NO; MCH 30.7 PG (27-31); MCHC 32.4 g/dL (33-37); MCV 94.7 FL (81-99); MONO# 0.57 X1000 (0.11-0.59); MONO% 4.9 % (1.7-9.3); MPV 11.2 FL (7.4-10.4); NEUT% 88.9 % (42.2-75.2); PLT 197 X1000 (130-400); RBC 3.39 XMIL (4.2-5.4)
[2017-08-07 05:38] LABS: AGAP 12; BUN 8 mg/dL (8-22); CALCIUM 8.5 mg/dL (8.8-10.2); CHLORIDE 104 mmol/L (98-107); COSMO 278; POTASSIUM 4.4 mmol/L (3.5-5.1); SODIUM 139 mmol/L (136-145); TCO2 23 mmol/L (25-35)
[2017-08-07] MEDS: PERIDEX MT SCH ×2 (09:49→20:51)
[2017-08-07] MEDS: LOVENOX SUBQ SCH (09:49)
[2017-08-07] MEDS: MAG-OX PO SCH (09:49)
[2017-08-07] MEDS: ENTEREG PO SCH ×2 (09:50→20:51)
[2017-08-07] MEDS ORDERED: TUMS EXTRA STRENGTH PO ONE (20:44)
[2017-08-07] MEDS: ZOCOR PO SCH (20:50)
[2017-08-08] MEDS: LR 1,000 ML IV SCH (00:49)
[2017-08-08] MEDS: OFIRMEV 1000 MG/ISOTONIC SOLN 1,000 MG/100 ML BOTTLE IV SCH ×4 (03:25→21:17)
[2017-08-08] MEDS ORDERED: CALMOSEPTINE OINTMENT TOP PRN (03:28)
[2017-08-08] MEDS: PERIDEX MT SCH ×2 (10:24→20:10)
[2017-08-08] MEDS: MAG-OX PO SCH (10:25)
[2017-08-08] MEDS: LOVENOX SUBQ SCH (10:25)
[2017-08-08] MEDS: ENTEREG PO SCH ×2 (10:25→20:10)
[2017-08-08] MEDS: D5 1/2 NS + KCL 20 MEQ 1,000 ML IV SCH ×2 (10:30→22:34)
[2017-08-08] MEDS: HUMULIN R SUBQ SCH ×3 (12:08→21:22)
[2017-08-08] MEDS: ZOCOR PO SCH (20:10)
[2017-08-09] MEDS: OFIRMEV 1000 MG/ISOTONIC SOLN 1,000 MG/100 ML BOTTLE IV SCH ×5 (03:56→21:33)
[2017-08-09] MEDS: D5 1/2 NS + KCL 20 MEQ 1,000 ML IV SCH ×3 (04:10→17:26)
[2017-08-09 05:53] LABS: MANUAL DIFF NEEDED? NO
[2017-08-09 06:08] LABS: BASO% 0.2 % (0.0-0.8); EOS# 0.19 X1000 (0.0-0.7); EOS% 3.2 % (0.0-10.0); HEMATOCRIT 27.2 % (37.0-47.0); HEMOGLOBIN 8.5 g/dL (12.0-16.0); IMM GRAN# 0.02 X1000 (0.0-0.04); IMM GRAN% 0.3 % (0.0-0.5); LYMPH# 0.54 X1000 (1.2-3.4); LYMPH% 9.2 % (20.5-51.1); MCH 30.2 PG (27-31); MCHC 31.3 g/dL (33-37); MCV 96.8 FL (81-99); MONO# 0.37 X1000 (0.11-0.59); MONO% 6.3 % (1.7-9.3); MPV 11.2 FL (7.4-10.4); NEUT% 80.8 % (42.2-75.2); PLT 150 X1000 (130-400); RBC 2.81 XMIL (4.2-5.4)
[2017-08-09] MEDS: HUMULIN R SUBQ SCH ×4 (06:10→21:29)
[2017-08-09 06:45] LABS: AGAP 11; BUN 5 mg/dL (8-22); CALCIUM 8.2 mg/dL (8.8-10.2); CHLORIDE 104 mmol/L (98-107); COSMO 280; POTASSIUM 3.5 mmol/L (3.5-5.1); SODIUM 141 mmol/L (136-145); TCO2 26 mmol/L (25-35)
[2017-08-09] MEDS: PERIDEX MT SCH ×2 (08:44→21:34)
[2017-08-09] MEDS: ENTEREG PO SCH ×2 (08:44→21:33)
[2017-08-09] MEDS: MAG-OX PO SCH (08:44)
[2017-08-09] MEDS: LOVENOX SUBQ SCH (08:44)
[2017-08-09] MEDS: ZOCOR PO SCH (21:33)
[2017-08-10] MEDS: OFIRMEV 1000 MG/ISOTONIC SOLN 1,000 MG/100 ML BOTTLE IV SCH ×4 (04:24→23:41)
[2017-08-10] MEDS: HUMULIN R SUBQ SCH ×4 (06:25→20:18)
[2017-08-10] MEDS: PERIDEX MT SCH ×2 (08:04→20:16)
[2017-08-10] MEDS: ENTEREG PO SCH (08:04)
[2017-08-10] MEDS: MAG-OX PO SCH (08:04)
[2017-08-10] MEDS: LOVENOX SUBQ SCH (08:04)
[2017-08-10] MEDS: ZOCOR PO SCH (20:16)
[2017-08-10] MEDS: DILAUDID IV PRN (23:47)
[2017-08-11] MEDS: OFIRMEV 1000 MG/ISOTONIC SOLN 1,000 MG/100 ML BOTTLE IV SCH ×2 (04:20→11:05)
[2017-08-11] MEDS: HUMULIN R SUBQ SCH (06:01)
[2017-08-11] MEDS: LOVENOX SUBQ SCH (09:07)
[2017-08-11] MEDS: PERIDEX MT SCH (09:07)
[2017-08-11] MEDS: MAG-OX PO SCH (09:07)
[2017-08-11 11:39] VITALS: BP 120/68
== END 2017-08-11 12:45 | disposition home health service (06) ==
LOC: SURHOLD 01:37 → 4N 16:00
PROVIDERS: ADMIT Surgery; ATTEND Surgery